=== PATIENT | female | born 1965 | race Caucasian/White ===

== ENCOUNTER 2018-09-20 15:03 | Emergency (ER) | payer OTHER ==
[~2018-09-20] VITALS: Ht 162.6 cm; Wt 68.0 kg
[2018-09-20] MEDS ORDERED: ATIVAN2 MG/1 ML IM (15:31)
[2018-09-20] MEDS ORDERED: KEPPRA1000 MG PO (15:31)
[2018-09-20] MEDS ORDERED: CLONAZEPAM2 MG PO (15:32)
[2018-09-20] MEDS ORDERED: AMBIEN10 MG PO (15:32)
[2018-09-20] MEDS ORDERED: NEURONTIN800 MG PO (15:32)
[2018-09-20] MEDS ORDERED: ZANTAC150 M3 PO (15:32)
[2018-09-20] MEDS ORDERED: INDERAL LA120 MG PO (15:33)
[2018-09-20] MEDS ORDERED: TENCON 50-3251 EACH PO (15:33)
[2018-09-20] MEDS ORDERED: INTESTINEX680 M1 PO (15:33)
== END 2018-09-20 22:02 | disposition home or self-care (01) ==
LOC: ER 15:03
DX: N83.292 Other ovarian cyst, left side (principal); R10.32 Left lower quadrant pain

== ENCOUNTER 2018-09-24 20:05 | Emergency (ER) | payer OTHER ==
[~2018-09-24] VITALS: Ht 152.4 cm; Wt 71.2 kg
[~2018-09-24 20:05] MED LIST: AMBIEN10 MG PO; ATIVAN2 MG/1 ML IM; CLONAZEPAM2 MG PO; INDERAL LA120 MG PO; INTESTINEX680 M1 PO; KEPPRA1000 MG PO; NEURONTIN800 MG PO; TENCON 50-3251 EACH PO; ZANTAC150 M3 PO
[2018-09-25] MEDS ORDERED: PERCOCET 5-3251 EACH PO (02:11)
[2018-09-25] MEDS ORDERED: DOLOGESIC 500-1 EACH PO (02:11)
== END 2018-09-25 04:20 | disposition home or self-care (01) ==
LOC: ER 20:05
DX: N83.292 Other ovarian cyst, left side (principal); R10.2 Pelvic and perineal pain